=== PATIENT | male | born 1935 | race Caucasian/White ===

== ENCOUNTER 2020-08-10 10:45 | Inpatient (IN) | payer MEDICARE, BC ==
[2020-08-10] MEDS: Piperacillin/Tazobactam 3.375 GM in Sodium Chloride 0.9% 50 ML IV SCH ×3 (12:11→23:16)
[2020-08-10] MEDS: Sodium Chloride 0.9% 10 ML Syringe FLUSH PRN ×3 (12:11→23:50)
[2020-08-10] MEDS: Acetaminophen/HYDROcodone 325-5 MG Tab PO PRN ×2 (14:51→23:23)
--- NOTE | 2020-08-10 16:27 | PROC ---
DATE OF PROCEDURE: 08/10/2020 HISTORY: Mr. Gates is an 85-year-old man who sustained a cat bite injury 5 days ago. In spite of oral antibiotics, it has worsened and he came in to the clinic and was admitted to the hospital at [place] today for increasing cellulitis of the left foot. On exam, he had a 2 x 3 cm fluctuant area around the central scab. I and D was recommended and accepted by the patient. Time-out was taken to identify the patient, the site of similar materials and gain his consent. Using Betadine prep and a 1% plain lidocaine local anesthetic, the area was anesthetized, then lanced with an 11 blade scalpel. A tiny amount of pus was obtained. This was cultured and a Band-Aid dressing applied. He tolerated the procedure well and will have IV antibiotics and treatment. /[id number] GLORIA/PRABHAKAR
[2020-08-10] MEDS: Formoterol/Mometasone 100-5 MCG 8.8 GM Inhaler IH SCH (20:51)
[2020-08-10] MEDS: metFORMIN 500 MG Tab PO SCH (20:52)
[2020-08-10] MEDS: atorvaSTATin 40 MG Tab PO SCH (20:52)
[2020-08-10] MEDS: amLODIPine 5 MG Tab PO SCH (20:56)
--- NOTE | 2020-08-10 22:41 | HP ---
ADMISSION DATE: 08/10/2020 CHIEF COMPLAINT: Foot infection. HISTORY OF PRESENT ILLNESS: Mr. Gates is an 85-year-old man with a history of type 2 diabetes, COPD, hypertension, coronary artery disease status post CABG, and history of knee arthroplasty. According to the patient, he was trying to prevent his cat from getting out of the house. The cat jumped up. He put his foot up and the cat's mouth was open and struck him on the top of his foot. It got red and painful. He went into the clinic and got started on Augmentin orally on 08/05/2020. It seemed to improve for the 1st couple of days and now has worsened again. He was seen again in the clinic by Sissy Christina and found to have an enlarged area of redness, pain, swelling, tenderness. No discharge. For this reason, he was sent over for acute admission. The patient states that his foot is more painful and it was the first couple of days and it has gotten more swollen on top of his foot. There has been no drainage. PAST MEDICAL HISTORY: He is status post CABG approximately 10 years ago with no current cardiac symptoms. He has a history of bilateral cataract surgeries. He had IA prior to his CABG. He has had rotator cuff repair of the right shoulder. He has a history of ORIF of right ankle fracture with hardware in place. He has had a total right knee arthroplasty. He has had reflux Priya type surgery. He has type 2 diabetes, chronic essential hypertension, coronary artery disease, COPD, and hyperlipidemia. MEDICATIONS: He has been on: 1. Augmentin 875 b.i.d. from the past 5 days. 2. Metformin 500 mg 1 tab b.i.d. 3. Advair 115/21 inhaler 2 puffs b.i.d. 4. Amlodipine 5 mg daily. 5. Losartan 100 mg daily. 6. Metoprolol succinate 100 mg daily. 7. Atorvastatin 40 mg daily. 8. Flexeril p.r.n. 9. Artificial Tears p.r.n. ALLERGIES: Aspirin and morphine, both cause nausea. HABITS: Nonsmoker and nondrinker. FAMILY AND SOCIAL HISTORY: The patient lives in [place]. He is . His son lives with him and accompanied him today. He has daughter, Sangita as next of kin. REVIEW OF SYSTEMS: GENERAL: No seizure, syncope or recent significant weight change. SKIN: Negative for rash. HEENT: No recent changes in hearing or vision. He does have some hearing loss. No recent upper respiratory infection. No cough, dyspnea, chest pain, palpitations, abdominal pain, diarrhea, swelling other than his left foot, or other skin rash. PHYSICAL EXAMINATION: GENERAL: He is alert and comfortable. He is a good historian, but is hard of hearing. VITAL SIGNS: Blood pressure 130/70, pulse 64, respirations normal, temp 97.2, and weight 201 pounds. SKIN: Anicteric, warm, dry. He has a dry 3 mm scab in the dorsum midfoot, left lower extremity. There is a 2 x 3 cm oval area of fluctuance around this and an area of erythema approximately 15 cm radius around this on the top of his foot. No ascending lymphangitis is noted. There is 2+ edema of the foot and ankle, left sided, none on the right side. Skin also shows healed incisions in the upper abdomen, right knee, right ankle, etc. HEENT: Shows mouth to be dry. LUNGS: Clear. HEART: Regular without murmur or gallop. ABDOMEN: Normal bowel sounds. Soft and nontender. EXTREMITIES: Show the lesion as above. LABORATORY: Pending. ASSESSMENT: 1. Acute cellulitis with abscess secondary to cat bite, left foot. 2. Type 2 diabetes. 3. History of coronary artery disease status post coronary artery bypass graft. 4. History of osteoarthritis. 5. Hypertension. PLAN: He is admitted. I have started him on IV Zosyn after I and D of the top of his foot, this was sent for culture. Anticipate a 48- to 72-hour acute hospital stay followed by return to home if improved enough. We will continue to manage his diabetes while inpatient. /[id number] GLORIA/PRABHAKAR
[2020-08-11] MEDS: Piperacillin/Tazobactam 3.375 GM in Sodium Chloride 0.9% 50 ML IV SCH ×4 (05:13→22:39)
[2020-08-11] MEDS: Losartan 100 MG Tab PO SCH (08:18)
[2020-08-11] MEDS: metFORMIN 500 MG Tab PO SCH ×2 (08:19→20:43)
[2020-08-11] MEDS: Formoterol/Mometasone 100-5 MCG 8.8 GM Inhaler IH SCH ×2 (08:19→20:42)
[2020-08-11] MEDS: amLODIPine 5 MG Tab PO SCH ×2 (08:20→20:45)
[2020-08-11] MEDS: Metoprolol Succinate 100 MG Tab.ER PO SCH (08:21)
[2020-08-11] MEDS ORDERED: Lisinopril 5 MG Tab PO SCH (09:00)
[2020-08-11] MEDS ORDERED: Aspirin 81 MG Tab.EC PO SCH (09:00)
--- NOTE | 2020-08-11 11:45 | PN ---
DATE SEEN: 08/11/2020 HISTORY: Jamel is an 85-year-old man who sustained a cat bite injury approximately 5 days ago. He was treated with outpatient Augmentin, but worsened, and was admitted yesterday for IV therapy. He had I and D of a small abscess on the top of his right foot yesterday. He has been treated with Zosyn IV every 6 hours. His blood sugars have remained in control and his renal function stable with a creatinine of 1.4. PHYSICAL EXAMINATION: GENERAL: Today, he is alert, comfortable. He is a good historian. VITAL SIGNS: Blood pressure 150/70, temperature 98.3, respirations normal, pulse 67. SKIN: Shows erythema inside the marked margin to be improved quite a bit from yesterday. He still has significant erythema and tenderness over his abscess area, dorsum of his left foot. There is no pain on motion of his toes this morning. ASSESSMENT: 1. Cellulitis with abscess, left foot, improved. 2. Type 2 diabetes. 3. Hypertension. 4. History of coronary artery disease. PLAN: We will continue his IV Zosyn. We will add single-strength Bactrim DS and watch his renal function. Plan another 24 to 48 hours of acute hospital stay followed by discharge to home when improved. We will continue to provide palliative care measures for his underlying arthritis, heart disease, etc. /[id number] GLORIA/PRABHAKAR
[2020-08-11] MEDS: Sulfamethoxazole/Trimethoprim 800-160 MG Tab PO SCH ×2 (12:08→20:45)
[2020-08-11] MEDS: atorvaSTATin 40 MG Tab PO SCH (20:45)
[2020-08-12] MEDS: Piperacillin/Tazobactam 3.375 GM in Sodium Chloride 0.9% 50 ML IV SCH ×3 (05:16→20:53)
[2020-08-12] MEDS: Formoterol/Mometasone 100-5 MCG 8.8 GM Inhaler IH SCH ×2 (09:54→20:42)
[2020-08-12] MEDS: Losartan 100 MG Tab PO SCH (09:54)
[2020-08-12] MEDS: amLODIPine 5 MG Tab PO SCH ×2 (09:55→20:42)
[2020-08-12] MEDS: Sulfamethoxazole/Trimethoprim 800-160 MG Tab PO SCH ×2 (09:55→20:42)
[2020-08-12] MEDS: metFORMIN 500 MG Tab PO SCH ×2 (09:55→20:42)
[2020-08-12] MEDS: Metoprolol Succinate 100 MG Tab.ER PO SCH (09:56)
--- NOTE | 2020-08-12 11:16 | PCM.PN ---
- General Info Date of Service: 08/12/20 Subjective Update: Jamel states his pain is improved in his foot, has pain over the mid foot and great toe. Denies any history of gout. No fevers, or chills. Tolerated I&D with Dr Lo yesterday. His Creatinine did jump today to 1.6. No diarrhea or constipation. - Patient Data Vitals - Most Recent: Last Vital Signs Temp 98.2 F 08/12/20 07:46 Pulse 67 08/12/20 09:56 Resp 18 08/12/20 07:46 BP 132/68 08/12/20 09:56 Pulse Ox 97 08/12/20 07:46 Weight - Most Recent: 194 lb 5 oz I&O - Last 24 Hours: Intake & Output 08/11/20 08/12/20 08/12/20 22:59 06:59 14:59 Intake Total 100 Balance 100 Lab Results Last 24 Hours: Laboratory Results - last 24 hr 08/11/20 08/11/20 08/11/20 Range/Units 06:12 12:03 16:07 WBC (3.2-10.1) x10-3/uL RBC (3.90-5.90) x10(6)uL Hgb (12.9-17.7) g/dL Hct (38.3-50.1) % MCV (80.8-98.7) fL MCH (27.0-33.3) pg MCHC (28.7-35.3) g/dL RDW (12.4-15.0) % Plt Count (117-477) x10(3)uL MPV (6.7-11.0) fL Neut % (Auto) (40.3-71.8) % Lymph % (Auto) (15.8-45.3) % [place] % (Auto) (5.5-15.2) % Eos % (Auto) (0.1-6.8) % Baso % (Auto) (0.3-3.8) % Neut # (Auto) (1.7-6.9) x10-3/uL Lymph # (Auto) (0.5-4.5) x10-3/uL [place] # (Auto) (0.0-1.2) x10-3/uL Eos # (Auto) (0.0-0.6) x10-3/uL Baso # (Auto) (0.0-0.3) x10-3/uL Sodium (135-145) mmol/L Potassium (3.5-5.3) mmol/L Chloride (100-110) mmol/L Carbon Dioxide (21-32) mmol/L BUN (7-18) mg/dL Creatinine (0.70-1.30) mg/dL Est Cr Clr Drug Dosing Estimated GFR (MDRD) (>60) BUN/Creatinine Ratio (9-20) Glucose (80-116) mg/dL POC Glucose 133 H 109 H 120 H (74-100) mg/dL Calcium (8.6-10.2) mg/dL Phosphorus (2.6-4.6) mg/dL C-Reactive Protein (0.5-0.9) mg/dL Albumin (3.2-4.6) g/dL 08/12/20 08/12/20 08/12/20 Range/Units 06:20 06:20 06:20 WBC 8.5 (3.2-10.1) x10-3/uL RBC 3.83 L (3.90-5.90) x10(6)uL Hgb 11.5 L (12.9-17.7) g/dL Hct 35.3 L (38.3-50.1) % MCV 92.2 (80.8-98.7) fL MCH 30.0 (27.0-33.3) pg MCHC 32.5 (28.7-35.3) g/dL RDW 13.6 (12.4-15.0) % Plt Count 281 (117-477) x10(3)uL MPV 7.2 (6.7-11.0) fL Neut % (Auto) 58.0 (40.3-71.8) % Lymph % (Auto) 29.5 (15.8-45.3) % [place] % (Auto) 8.2 (5.5-15.2) % Eos % (Auto) 3.7 (0.1-6.8) % Baso % (Auto) 0.6 (0.3-3.8) % Neut # (Auto) 4.9 (1.7-6.9) x10-3/uL Lymph # (Auto) 2.5 (0.5-4.5) x10-3/uL [place] # (Auto) 0.7 (0.0-1.2) x10-3/uL Eos # (Auto) 0.3 (0.0-0.6) x10-3/uL Baso # (Auto) 0.1 (0.0-0.3) x10-3/uL Sodium 140 (135-145) mmol/L Potassium 4.3 (3.5-5.3) mmol/L Chloride 103 (100-110) mmol/L Carbon Dioxide 25 (21-32) mmol/L BUN 26 H (7-18) mg/dL Creatinine 1.6 H (0.70-1.30) mg/dL Est Cr Clr Drug Dosing TNP Estimated GFR (MDRD) 41 L (>60) BUN/Creatinine Ratio 16.3 (9-20) Glucose 127 H (80-116) mg/dL POC Glucose (74-100) mg/dL Calcium 9.3 (8.6-10.2) mg/dL Phosphorus 4.0 (2.6-4.6) mg/dL C-Reactive Protein 6.1 H* (0.5-0.9) mg/dL Albumin 3.0 L (3.2-4.6) g/dL 08/12/20 Range/Units 06:20 WBC (3.2-10.1) x10-3/uL RBC (3.90-5.90) x10(6)uL Hgb (12.9-17.7) g/dL Hct (38.3-50.1) % MCV (80.8-98.7) fL MCH (27.0-33.3) pg MCHC (28.7-35.3) g/dL RDW (12.4-15.0) % Plt Count (117-477) x10(3)uL MPV (6.7-11.0) fL Neut % (Auto) (40.3-71.8) % Lymph % (Auto) (15.8-45.3) % [place] % (Auto) (5.5-15.2) % Eos % (Auto) (0.1-6.8) % Baso % (Auto) (0.3-3.8) % Neut # (Auto) (1.7-6.9) x10-3/uL Lymph # (Auto) (0.5-4.5) x10-3/uL [place] # (Auto) (0.0-1.2) x10-3/uL Eos # (Auto) (0.0-0.6) x10-3/uL Baso # (Auto) (0.0-0.3) x10-3/uL Sodium (135-145) mmol/L Potassium (3.5-5.3) mmol/L Chloride (100-110) mmol/L Carbon Dioxide (21-32) mmol/L BUN (7-18) mg/dL Creatinine (0.70-1.30) mg/dL Est Cr Clr Drug Dosing Estimated GFR (MDRD) (>60) BUN/Creatinine Ratio (9-20) Glucose (80-116) mg/dL POC Glucose 112 H (74-100) mg/dL Calcium (8.6-10.2) mg/dL Phosphorus (2.6-4.6) mg/dL C-Reactive Protein (0.5-0.9) mg/dL Albumin (3.2-4.6) g/dL Med Orders - Current: Current Medications Hydrocodone Bitart/Acetaminophen ([place] 325-5 Mg) 1 tab PO Q6H PRN PRN Reason: Pain Last Admin: 08/10/20 23:23 Dose: 1 tab Documented by: Amlodipine Besylate (Norvasc) 5 mg PO BID ON LICENSE OF [facility] Last Admin: 08/12/20 09:55 Dose: 5 mg Documented by: Atorvastatin Calcium (Lipitor) 40 mg PO BEDTIME ON LICENSE OF [facility] Last Admin: 08/11/20 20:45 Dose: 40 mg Documented by: Piperacillin Sod/Tazobactam (Sod 3.375 gm/ Sodium Chloride) 50 mls @ 100 mls/hr IV Q8H ON LICENSE OF [facility] Losartan Potassium (Cozaar) 100 mg PO DAILY ON LICENSE OF [facility] Last Admin: 08/12/20 09:54 Dose: 100 mg Documented by: Metformin HCl (Glucophage) 500 mg PO BID ON LICENSE OF [facility] Last Admin: 08/12/20 09:55 Dose: 500 mg Documented by: Metoprolol Succinate (Toprol Xl) 100 mg PO DAILY ON LICENSE OF [facility] Last Admin: 08/12/20 09:56 Dose: 100 mg Documented by: Mometasone Furoate/Formoterol Fumar (Dulera 100-5 Mcg) 2 puff IH BID ON LICENSE OF [facility] Last Admin: 08/12/20 09:54 Dose: 1 each Documented by: Sodium Chloride (Saline Flush) 10 ml FLUSH ASDIRECTED PRN PRN Reason: Keep Vein Open Last Admin: 08/10/20 23:50 Dose: 10 ml Documented by: Trimethoprim/Sulfamethoxazole (Septra Ds) 1 tab PO BID ON LICENSE OF [facility] Last Admin: 08/12/20 09:55 Dose: 1 tab Documented by: Discontinued Medications Aspirin (Halfprin) 81 mg PO DAILY ON LICENSE OF [facility] Piperacillin Sod/Tazobactam (Sod 3.375 gm/ Sodium Chloride) 50 mls @ 100 mls/hr IV Q6H ON LICENSE OF [facility] Last Admin: 08/12/20 05:16 Dose: 100 mls/hr Documented by: Lisinopril (Prinivil) 5 mg PO DAILY ON LICENSE OF [facility] - Exam General: Alert, Oriented, Cooperative, No Acute Distress Lungs: Clear to Auscultation, Normal Respiratory Effort Cardiovascular: Regular Rate, Regular Rhythm GI/Abdominal Exam: Normal Bowel Sounds, Soft, Non-Tender, No Distention Extremities: Pedal Edema (left foot), Redness (redness has stayed within skin marking lines, TTP & warm to touch. Band-aid covering I&D site. ) Peripheral Pulses: 2+: Radial (L), Radial (R) Sepsis Event Note - Evaluation Sepsis Screening Result: No Definite Risk - Focused Exam Vital Signs: Vital Signs Temp Pulse Pulse Resp BP BP Pulse Ox 08/12/20 09:56 67 132/68 08/12/20 09:55 132/68 08/12/20 09:54 132/68 08/12/20 07:46 98.2 F 18 132 97 08/12/20 06:35 98.2 F 18 97 - Problem List & Annotations (1) Cellulitis SNOMED Code(s): 870326030 Code(s): L03.90 - CELLULITIS, UNSPECIFIED Status: Acute Current Visit: Yes Qualifiers: Site of cellulitis: extremity Laterality: left (2) Cat bite of foot SNOMED Code(s): 586330576 Code(s): S91.359A - OPEN BITE, UNSPECIFIED FOOT, INITIAL ENCOUNTER; W55.01XA - BITTEN BY CAT, INITIAL ENCOUNTER Status: Acute Current Visit: Yes (3) Acute renal insufficiency SNOMED Code(s): 161316064 Code(s): N28.9 - DISORDER OF KIDNEY AND URETER, UNSPECIFIED Status: Acute Current Visit: Yes (4) Diabetes mellitus SNOMED Code(s): 21188773 Code(s): E11.9 - TYPE 2 DIABETES MELLITUS WITHOUT COMPLICATIONS Status: Chronic Current Visit: No (5) Hyperlipemia SNOMED Code(s): 36334669 Code(s): E78.5 - HYPERLIPIDEMIA, UNSPECIFIED Status: Chronic Current Visit: No (6) Hypertension SNOMED Code(s): 69655986 Code(s): I10 - ESSENTIAL (PRIMARY) HYPERTENSION Status: Chronic Current Visit: No - Problem List Review Problem List Initiated/Reviewed/Updated: Yes - My Orders Last 24 Hours: My Active Orders 08/12/20 13:00 Piperacillin/Tazobactam [Zosyn] 3.375 gm Sodium Chloride 0.9% [Normal Saline] 50 ml IV Q8H 08/13/20 06:00 BASIC METABOLIC PANEL,BMP [CHEM] Routine CBC WITH AUTO DIFF [HEME] Routine CRP [C-REACTIVE PROTEIN] [CHEM] Routine - Plan Plan:: 1. Cellulitis/Cat bite: change Zosyn to every 8 hours, continue Bactrim SS. Repeat labs tomorrow with CRP. 2. Acute renal insufficiency: secondary to Zosyn. Adjust dose and repeat BMP tomorrow. 3. Discharge possibly tomorrow or Saturday.
[2020-08-12] MEDS: Acetaminophen/HYDROcodone 325-5 MG Tab PO PRN (20:40)
[2020-08-12] MEDS: atorvaSTATin 40 MG Tab PO SCH (20:42)
[2020-08-12] MEDS: Sodium Chloride 0.9% 10 ML Syringe FLUSH PRN (21:30)
[2020-08-13] MEDS: Piperacillin/Tazobactam 3.375 GM in Sodium Chloride 0.9% 50 ML IV SCH (05:03)
[2020-08-13] MEDS: Losartan 100 MG Tab PO SCH (08:28)
[2020-08-13] MEDS: metFORMIN 500 MG Tab PO SCH (08:29)
[2020-08-13] MEDS: Formoterol/Mometasone 100-5 MCG 8.8 GM Inhaler IH SCH (08:29)
[2020-08-13] MEDS: amLODIPine 5 MG Tab PO SCH (08:30)
[2020-08-13] MEDS: Metoprolol Succinate 100 MG Tab.ER PO SCH (08:30)
[2020-08-13] MEDS: Sulfamethoxazole/Trimethoprim 800-160 MG Tab PO SCH (08:30)
[2020-08-13 12:12] VITALS: BP 140/68; PULSE 62
--- NOTE | 2020-08-13 14:11 | PCM.DCSUM1 ---
Discharge Summary - Hospital Course HPI Initial Comments: Jamel presented for direct admission from the clinic for failed outpatient treatment of cat bite/cellulitis. He had tried to keep his cat from going house with his foot, the cat's mouth was open when his foot and the cat connected. Area become red and painful, went to the clinic on 08/05/20, was started on Augmentin. It seemed to improve initially but then worsened, had enlarged area of redness, swelling, increased pain & tenderness but no drainage. Seen in clinic again on 08/10 and admitted for IV antibiotics. He had 3 mm scabbed area on left midfoot, 2x3 cm oval fluctuant area with surrounding erythema extending approximately 15 cm, had 2+ edema. I&D was performed on admission, and placed on Zosyn IV q6h and Bactrim SS bid. Diagnosis: Stroke: No - Discharge Data Discharge Date: 08/13/20 Discharge Disposition: Home, Self-Care 01 Condition: Good - Referral to Home Health Primary Care Physician: Sissy Christina NP - Discharge Diagnosis/Problem(s) (1) Cellulitis SNOMED Code(s): 263355709 ICD Code: L03.90 - CELLULITIS, UNSPECIFIED Status: Acute Qualifiers: Site of cellulitis: extremity Laterality: left (2) Cat bite of foot SNOMED Code(s): 284861645 ICD Code: S91.359A - OPEN BITE, UNSPECIFIED FOOT, INITIAL ENCOUNTER; W55.01XA - BITTEN BY CAT, INITIAL ENCOUNTER Status: Acute (3) Acute renal insufficiency SNOMED Code(s): 458680441 ICD Code: N28.9 - DISORDER OF KIDNEY AND URETER, UNSPECIFIED Status: Acute (4) Diabetes mellitus SNOMED Code(s): 03482243 ICD Code: E11.9 - TYPE 2 DIABETES MELLITUS WITHOUT COMPLICATIONS Status: Chronic (5) Hyperlipemia SNOMED Code(s): 24823450 ICD Code: E78.5 - HYPERLIPIDEMIA, UNSPECIFIED Status: Chronic (6) Hypertension SNOMED Code(s): 72292353 ICD Code: I10 - ESSENTIAL (PRIMARY) HYPERTENSION Status: Chronic - Patient Summary/Data Hospital Course: Jamel was started on Zosyn every 6 hours and Bactrim SS bid. Creatinine bumped up from 1.4 to 1.6 so Zosyn was changed to every 8 hours dosing and Bactrim kept the same. WBC stayed with normal range. Wound culture grew gram negative bacilli consistent with cat bite. CRP went from 6.1 to 3.8. Will go home to continue oral therapy for 7 more days. Probiotic added at discharge. No home services required, lives with his son. - Patient Instructions Diet: Regular Diet as Tolerated Activity: As Tolerated, Elevate Extremity Driving: Do Not Drive Showering/Bathing: May Shower, No Tub Bathing/Swimming Wound/Incision Care: Keep Operative Site/Wound Site Clean and Dry, Change D ressing Daily Notify Provider of: Fever, Increased Pain, Swelling and Redness, Nausea and/or Vomiting Other/Special Instructions: Follow up with Sissy Christina NP in 2-3 days to recheck your kidney function and your cellulitis. - Discharge Plan *PRESCRIPTION DRUG MONITORING PROGRAM REVIEWED*: Not Applicable *COPY OF PRESCRIPTION DRUG MONITORING REPORT IN PATIENT [place]: Not Applicable Prescriptions/Med Rec: Amoxicillin/Clavulanate K [Augmentin 875-125 MG] 1 tab PO BID 7 Days #14 tablet L.acidoph,Paracasei, B.lactis [Probiotic] 1 each PO BID 7 Days #14 capsule Sulfamethoxazole/Trimethoprim [Septra DS] 1 tab PO BID 7 Days #14 tablet Home Medications: Home Meds metFORMIN [Glucophage] 500 mg PO BID 10/28/14 [History] atorvaSTATin [Lipitor] 40 mg PO BEDTIME 12/11/14 [History] Acetaminophen [Tylenol Extra Strength] 500 mg PO BID PRN 08/10/20 [History] Metoprolol Succinate 100 mg PO DAILY 08/10/20 [History] Non-Formulary Medication [NF Drug] 115 mcg PO BID 08/10/20 [History] amLODIPine [Norvasc] 5 mg PO BID 08/10/20 [History] Amoxicillin/Clavulanate K [Augmentin 875-125 MG] 1 tab PO BID 7 Days #14 tablet 08/13/20 [Rx] L.acidoph,Paracasei, B.lactis [Probiotic] 1 each PO BID 7 Days #14 capsule 08/13/20 [Rx] Sulfamethoxazole/Trimethoprim [Septra DS] 1 tab PO BID 7 Days #14 tablet 08/13/20 [Rx] Patient Handouts: Animal Bite, Adult, [id number], Cellulitis, Adult, Fall Prevention in Hospitals, Adult, Venous Thromboembolism Prevention - Discharge Summary/Plan Comment DC Time >30 min.: No - General Info Date of Service: 08/13/20 Subjective Update: Pain is greatly improved, redness is improved, feels most of his pain is across his toes and just below the ankle which he attributes to his arthritis more than to infection. Slept well. Had more frequent stools this morning but denies that they were loose. No nausea or vomiting. No fevers. - Patient Data Vitals - Most Recent: Last Vital Signs Temp 97.8 F 08/13/20 11:15 Pulse 62 08/13/20 11:15 Resp 18 08/13/20 11:15 BP 140/68 08/13/20 11:15 Pulse Ox 98 08/13/20 11:15 Weight - Most Recent: 194 lb 5 oz I&O - Last 24 hours: Intake & Output 08/12/20 08/13/20 08/13/20 22:59 06:59 14:59 Intake Total 50 50 640 Balance 50 50 640 Lab Results - Last 24 hrs: Laboratory Results - last 24 hr 08/12/20 08/13/20 08/13/20 Range/Units 16:32 06:15 06:15 WBC 8.5 (3.2-10.1) x10-3/uL RBC 3.92 (3.90-5.90) x10(6)uL Hgb 11.7 L (12.9-17.7) g/dL Hct 36.0 L (38.3-50.1) % MCV 91.7 (80.8-98.7) fL MCH 29.7 (27.0-33.3) pg MCHC 32.4 (28.7-35.3) g/dL RDW 13.9 (12.4-15.0) % Plt Count 322 (117-477) x10(3)uL MPV 7.0 (6.7-11.0) fL Neut % (Auto) 54.3 (40.3-71.8) % Lymph % (Auto) 32.0 (15.8-45.3) % [place] % (Auto) 9.0 (5.5-15.2) % Eos % (Auto) 3.9 (0.1-6.8) % Baso % (Auto) 0.8 (0.3-3.8) % Neut # (Auto) 4.6 (1.7-6.9) x10-3/uL Lymph # (Auto) 2.7 (0.5-4.5) x10-3/uL [place] # (Auto) 0.8 (0.0-1.2) x10-3/uL Eos # (Auto) 0.3 (0.0-0.6) x10-3/uL Baso # (Auto) 0.1 (0.0-0.3) x10-3/uL Sodium 139 (135-145) mmol/L Potassium 4.3 (3.5-5.3) mmol/L Chloride 103 (100-110) mmol/L Carbon Dioxide 25 (21-32) mmol/L BUN 24 H (7-18) mg/dL Creatinine 1.6 H (0.70-1.30) mg/dL Est Cr Clr Drug Dosing TNP Estimated GFR (MDRD) 41 L (>60) BUN/Creatinine Ratio 15.0 (9-20) Glucose 125 H (80-116) mg/dL POC Glucose 117 H (74-100) mg/dL Calcium 9.9 (8.6-10.2) mg/dL C-Reactive Protein (0.5-0.9) mg/dL 08/13/20 Range/Units 06:15 WBC (3.2-10.1) x10-3/uL RBC (3.90-5.90) x10(6)uL Hgb (12.9-17.7) g/dL Hct (38.3-50.1) % MCV (80.8-98.7) fL MCH (27.0-33.3) pg MCHC (28.7-35.3) g/dL RDW (12.4-15.0) % Plt Count (117-477) x10(3)uL MPV (6.7-11.0) fL Neut % (Auto) (40.3-71.8) % Lymph % (Auto) (15.8-45.3) % [place] % (Auto) (5.5-15.2) % Eos % (Auto) (0.1-6.8) % Baso % (Auto) (0.3-3.8) % Neut # (Auto) (1.7-6.9) x10-3/uL Lymph # (Auto) (0.5-4.5) x10-3/uL [place] # (Auto) (0.0-1.2) x10-3/uL Eos # (Auto) (0.0-0.6) x10-3/uL Baso # (Auto) (0.0-0.3) x10-3/uL Sodium (135-145) mmol/L Potassium (3.5-5.3) mmol/L Chloride (100-110) mmol/L Carbon Dioxide (21-32) mmol/L BUN (7-18) mg/dL Creatinine (0.70-1.30) mg/dL Est Cr Clr Drug Dosing Estimated GFR (MDRD) (>60) BUN/Creatinine Ratio (9-20) Glucose (80-116) mg/dL POC Glucose (74-100) mg/dL Calcium (8.6-10.2) mg/dL C-Reactive Protein 3.8 H* (0.5-0.9) mg/dL RAFI Results - Last 24 hrs: Microbiology 08/10/20 11:15 Gram Stain - Final Abscess Routine Culture - Preliminary Med Orders - Current: Current Medications Discontinued Medications Hydrocodone Bitart/Acetaminophen ([place] 325-5 Mg) 1 tab PO Q6H PRN PRN Reason: Pain Last Admin: 08/12/20 20:40 Dose: 1 tab Documented by: Amlodipine Besylate (Norvasc) 5 mg PO BID [facility] Last Admin: 08/13/20 08:30 Dose: 5 mg Documented by: Aspirin (Halfprin) 81 mg PO DAILY [facility] Atorvastatin Calcium (Lipitor) 40 mg PO BEDTIME [facility] Last Admin: 08/12/20 20:42 Dose: 40 mg Documented by: Piperacillin Sod/Tazobactam (Sod 3.375 gm/ Sodium Chloride) 50 mls @ 100 mls/hr IV Q6H [facility] Last Admin: 08/12/20 05:16 Dose: 100 mls/hr Documented by: Piperacillin Sod/Tazobactam (Sod 3.375 gm/ Sodium Chloride) 50 mls @ 100 mls/hr IV Q8H [facility] Last Admin: 08/13/20 05:03 Dose: 100 mls/hr Documented by: Lisinopril (Prinivil) 5 mg PO DAILY [facility] Losartan Potassium (Cozaar) 100 mg PO DAILY [facility] Last Admin: 08/13/20 08:28 Dose: 100 mg Documented by: Metformin HCl (Glucophage) 500 mg PO BID [facility] Last Admin: 08/13/20 08:29 Dose: 500 mg Documented by: Metoprolol Succinate (Toprol Xl) 100 mg PO DAILY [facility] Last Admin: 08/13/20 08:30 Dose: 100 mg Documented by: Mometasone Furoate/Formoterol Fumar (Dulera 100-5 Mcg) 2 puff IH BID [facility] Last Admin: 08/13/20 08:29 Dose: 2 each Documented by: Sodium Chloride (Saline Flush) 10 ml FLUSH ASDIRECTED PRN PRN Reason: Keep Vein Open Last Admin: 08/12/20 21:30 Dose: 10 ml Documented by: Trimethoprim/Sulfamethoxazole (Septra Ds) 1 tab PO BID [facility] Last Admin: 08/13/20 08:30 Dose: 1 tab Documented by: - Exam General: Reports: Alert, Oriented, Cooperative, No Acute Distress Lungs: Reports: Clear to Auscultation, Normal Respiratory Effort Cardiovascular: Reports: Regular Rate, Regular Rhythm GI/Abdominal Exam: Normal Bowel Sounds, Soft, Non-Tender, No Distention Extremities: No Pedal Edema Wound/Incisions: Reports: No Drainage, Erythema Improving (4 cm centralized erythema around I&D site, TTP over midfoot, no fluctuance)
== END 2020-08-13 11:20 | disposition home or self-care (01) | DRG 603 ==
LOC: FB.MS 10:45 → UNDOADMIN 10:45 → FB.MS 11:06
PROVIDERS: ADMIT Family Medicine; ATTEND Family Medicine
PROC: 0Y9N0ZZ Drainage of Left Foot, Open Approach (ICD-10-PCS; principal; 2020-08-10)
DX: L03.116 Cellulitis of left lower limb (principal); L02.612 Cutaneous abscess of left foot; S91.352A Open bite, left foot, initial encounter; N28.9 Disorder of kidney and ureter, unspecified; E11.9 Type 2 diabetes mellitus without complications; E78.5 Hyperlipidemia, unspecified; I10 Essential (primary) hypertension; B96.89 Other specified bacterial agents as the cause of diseases classified elsewhere; M19.90 Unspecified osteoarthritis, unspecified site; J44.9 Chronic obstructive pulmonary disease, unspecified; I25.10 Atherosclerotic heart disease of native coronary artery without angina pectoris; Z96.651 Presence of right artificial knee joint; W55.01XA Bitten by cat, initial encounter; Z79.84 Long term (current) use of oral hypoglycemic drugs; Z95.1 Presence of aortocoronary bypass graft; Z79.899 Other long term (current) drug therapy; Z88.6 Allergy status to analgesic agent; Z88.5 Allergy status to narcotic agent; Z20.822 Contact with and (suspected) exposure to COVID-19
CPT/HCPCS: 10060; 36415; 80048; 80053; 80069; 82962; 85025; 86140; 87070; 87186; 87205; 99221; 99232; A9270-GY; J2543; U0002

== ENCOUNTER 2021-09-12 22:10 | Emergency (ER) | payer MEDICARE, BC ==
[2021-09-12] MEDS ORDERED: Aspirin 81 MG Tab.Chew PO ONE (22:20)
[2021-09-13] MEDS ORDERED: Heparin Sodium/0.45% NaCl 25,000 UNITS/500 ML BAG IV SCH ×2 (00:45→01:23)
[2021-09-13] MEDS ORDERED: Heparin Sodium 5,000 Units/ML Vial IVPUSH ONE (00:57)
[2021-09-13] MEDS ORDERED: Heparin Sodium/0.45% NaCl 500 ML IV SCH ×2 (01:15→01:27)
[2021-09-13 02:27] VITALS: BP 132/70; PULSE 74
== END 2021-09-13 02:19 ==
LOC: FB.ED 22:10
DX: I21.4 Non-ST elevation (NSTEMI) myocardial infarction (principal); E78.00 Pure hypercholesterolemia, unspecified; I10 Essential (primary) hypertension; I25.2 Old myocardial infarction; J44.9 Chronic obstructive pulmonary disease, unspecified; E11.9 Type 2 diabetes mellitus without complications; Z95.1 Presence of aortocoronary bypass graft; Z88.5 Allergy status to narcotic agent; Z88.8 Allergy status to other drugs, medicaments and biological substances; Z79.899 Other long term (current) drug therapy; Z79.84 Long term (current) use of oral hypoglycemic drugs; Z87.891 Personal history of nicotine dependence
CPT/HCPCS: 36415; 71045; 80053; 83880; 84484; 85025; 93005; 96365; 99283; 99285; A9270; J1644

== ENCOUNTER 2022-02-18 19:44 | Emergency (ER) | payer MEDICARE, BC ==
[2022-02-18 20:22] LABS: ESTIMATED GFR 48 mL/min (>60)
[2022-02-18 20:56] VITALS: BP 135/70; PULSE 86
== END 2022-02-18 21:18 | disposition home or self-care (01) ==
LOC: FB.ED 19:44
DX: R07.89 Other chest pain (principal); I25.2 Old myocardial infarction; J44.9 Chronic obstructive pulmonary disease, unspecified; E11.9 Type 2 diabetes mellitus without complications; Z87.891 Personal history of nicotine dependence; Z95.1 Presence of aortocoronary bypass graft; Z79.899 Other long term (current) drug therapy
CPT/HCPCS: 36415; 71045; 80048; 83880; 84484; 85025; 86140; 93005; 99285

== ENCOUNTER 2022-07-17 11:10 | Emergency (ER) | payer MEDICARE, BC ==
[2022-07-17 11:56] LABS: ESTIMATED GFR 53 mL/min (>60)
[2022-07-17 13:02] VITALS: BP 129/70; PULSE 65
== END 2022-07-17 12:40 | disposition home or self-care (01) ==
LOC: FB.ED 11:10
DX: I25.10 Atherosclerotic heart disease of native coronary artery without angina pectoris (principal); R09.1 Pleurisy; J44.9 Chronic obstructive pulmonary disease, unspecified; E78.00 Pure hypercholesterolemia, unspecified; I10 Essential (primary) hypertension; I25.2 Old myocardial infarction; E11.9 Type 2 diabetes mellitus without complications; Z88.6 Allergy status to analgesic agent; Z79.899 Other long term (current) drug therapy; Z79.84 Long term (current) use of oral hypoglycemic drugs; Z90.49 Acquired absence of other specified parts of digestive tract; Z87.891 Personal history of nicotine dependence
CPT/HCPCS: 36415; 71045; 80053; 83880; 84484; 85025; 85610; 85730; 93005; 99285